=== PATIENT | female | born 1975 | race Two or more races ===

== ENCOUNTER → 2024-12-10 | Outpatient (CLI) | payer MEDICAID, SELFPAY ==
--- NOTE | 2024-12-10 08:15 | XR_ITS ---
Examination: Screening digital mammography, bilateral Computer aided detection 3-D breast Tomosynthesis, bilateral Date and time of exam: December 10, 2024 0813 hours Comparison May 18, 2016 Indication: Screening Technique: Nonmagnified MLO, CC views of the breasts to been obtained, reconstructed from 3-D Tomosynthesis images. R2 computer aided detection program utilized for evaluation of suspicious masses and/or abnormal calcifications. 3-D Tomosynthesis images obtained. Findings: Scattered areas of fibroglandular density. Skin lesion upper right breast Benign calcifications 6 mm focal asymmetry indistinct margins retroareolar region left breast Impression: BI-RADS Category 0: Incomplete: Need additional imaging evaluation Recommend follow-up spot tomographic views of 6 mm focal asymmetry retroareolar region left breast as well as left breast sonography to complete the workup
== END | disposition home or self-care (01) ==
PROVIDERS: Referring Provider Family Medicine; Visit Provider Family Medicine
DX: Z00.00 Encounter for general adult medical examination without abnormal findings (principal); Z12.31 Encounter for screening mammogram for malignant neoplasm of breast; R92.323 Mammographic fibroglandular density, bilateral breasts; R92.1 Mammographic calcification found on diagnostic imaging of breast; L98.9 Disorder of the skin and subcutaneous tissue, unspecified; N64.89 Other specified disorders of breast
CPT/HCPCS: 77063; 77067